=== PATIENT | female | born 1975 | race Two or more races ===

== ENCOUNTER → 2023-12-10 | Emergency (ER) | payer OTHER ==
[~2023-12-10] VITALS: Ht 149.9 cm; Wt 72.6 kg
[~2023-12-10] MED LIST: PROAIR RESPICL90 MCG; [UNRECOGNIZED DRUG - OTHER] SQ
== END | disposition home or self-care (01) ==
LOC: ER 19:35
DX: M77.8 Other enthesopathies, not elsewhere classified (principal); Z88.0 Allergy status to penicillin; Z88.5 Allergy status to narcotic agent